=== PATIENT | male | born 1970 | race Caucasian/White ===

== ENCOUNTER 2023-02-03 13:18 | Emergency (ER) | payer SELFPAY ==
[2023-02-03] MEDS ORDERED: Ketorolac 30 MG/ML SDV IM ONE (14:36)
[2023-02-03] MEDS ORDERED: Orphenadrine 60 MG/2 ML Inj IM ONE (14:36)
== END 2023-02-03 15:30 | disposition home or self-care (01) ==
LOC: MW.ED 13:18
DX: M54.41 Lumbago with sciatica, right side (principal); E11.9 Type 2 diabetes mellitus without complications; I10 Essential (primary) hypertension; Z79.84 Long term (current) use of oral hypoglycemic drugs; Z79.899 Other long term (current) drug therapy; Z88.0 Allergy status to penicillin
CPT/HCPCS: 96372; 99283; J1885; J2360